=== PATIENT | female | born 1980 | race African-American/Black ===

== ENCOUNTER 2019-04-01 20:24 | Emergency (ER) | payer OTHER ==
[~2019-04-01] VITALS: Ht 160 cm; Wt 56.7 kg
--- OUTSIDE RECORDS SUMMARY | 2019-04-01 20:27 | XMS REPORT | Summary of Care ---
Author Author KAI HAMILTON M.D. Unknown Address [facility] Phone Unavailable Care Team Providers Care Handbag Designer Name Role Phone KAI HAMILTON M.D. 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 Medications Name Dates Details No Reported Medications Active Allergies and Adverse Reactions Name Dates Details No Known Drug Allergies (Allergy) Status: Active Procedures Procedure Dates Details CT Sinus w/o contrast with sag recons 13889 Date: 17-Aug-2017 History of tonsillectomy Completed Immunization Name Dates Details Immunizations not documented Family History Name Dates Details Family history of Allergy (995.3, T78.40XA) Comments: Family History Status: Active Family history of asthma (V17.5, Z82.5) Comments: Family History Status: Active Family history of malignant neoplasm (V16.9, Z80.9) Comments: Family History Status: Active Social History Name Dates Details - Status: Name Dates Details Never smoker Vital Signs Date Test Result Details [id number]-[id number]:01 Height 63 in Status: Weight 128 lb Status: Body Mass Index Calculated 22.67 kg/m2 Status: Body Surface Area Calculated 1.6 m2 Status: 2-Doz-[id number]:12 BP Systolic 107 mm[Hg] Status: BP Diastolic 70 mm[Hg] Status: Height 63 in Status: Weight 128.5 lb Status: Body Mass Index Calculated 22.76 kg/m2 Status: Body Surface Area Calculated 1.6 m2 Status: Heart Rate 81 /min Status: Results Date Description Value Details [id number] Tobacco Use Screening Completed DONE 08-Gmj-24452:30 CT Sinus wo contrast [address] SEE NOTES Comments: Clinical Indication: - allergic rhinitis &chronic headachesComparison: NoneTechnique: CT of the sinuses is performed without contrast on a multi-detectorCT. Coronal and sagittal reconstructions were obtained.CT Radiation Dose DLP 528 mGy-cmFINDINGS:PARANASAL SINUSES: There is a 2.4 cm mucous retention cyst in the base of theright maxillary sinus 1.7 cm in the base of the left. There is minimal mu cosalthickening along the medial wall and the bilateral ostium. The remainder of theparanasal sinuses show no significant because inflammatory changes with onlyminimal mucosal thickening in the right lateral sphenoid sinus and left frontalethmoid recess.SOFT TISSUES: There is no soft tissue swelling seen. There is no significantlymphadenopathy noted. There are no fluid collections.NASAL CAVITY: The nasal septum is slightly deviated and there is mucosalprominence of the left middle turbinate. There is no nasal polyposis.ORBITS: The globes and extraocular muscles appear unremarkable. The orbitalapex regions appear unremarkable. The orbital roof, floor, superior, inferior,medial and lateral macias are intact.FACIAL BONES: There are no facial bone fractures noted. The pterygoid platesare intact. The zygomatic arches are intact. The cribriform plate and cristagalli regions are unremarkable. The maxilla is intact. The mandible is intactwith intact mandibular condyles and coronoid processes.IMPRES CARLENE:Mucous retention cyst in the base of the maxillary sinuses are present alongwith minor mucosal thickening in the right lateral sphenoid sinus and leftfrontal ethmoid recess.There is no nasal polyposis. There is slight nasal septal deviation.SL: ASHLEY--Read by: Aditya Melgozaictated Date/time: 08/27/17 10:06Electronically Signed by: Aditya Melgoza MD 08/27/1809:08FINAL REPORT Plan of Care Name Dates Details Planned Observations Planned Goals not documented Interventions Provided Plan* 1. Will need to see Neurology for the headaches. Will begin sinus rinse daily. Will need to begin dietary modifications and continue on the PPI. Fu as needed. Instructions Name Dates Details Instructions not documented Encounters Appointment; KAI HAMILTON M.D. Encounter Diagnosis: Problem not documented On: 17-Aug-2017 10:45 Appointment; KAI HAMILTON M.D. Encounter Diagnosis: Problem not documented On: 31-Aug-2017 10:00
--- OUTSIDE RECORDS SUMMARY | 2019-04-01 20:27 | XMS REPORT ---
Author Author [facility] Address Unknown Phone Unavailable Care Team Providers Care Private Equity Associate Name Role Phone Unavailable Unavailable Problems This patient has no known problems. Allergies, Adverse Reactions, Alerts This patient has no known allergies or adverse reactions. Medications This patient has no known medications.
--- OUTSIDE RECORDS SUMMARY | 2019-04-01 20:27 | XMS REPORT | Encounter Summary ---
Author Organization Unknown Address [address] [place] [address] Phone [phone] Reason for Visit Medical Complaint Instructions 1. Exposure to Influenzavirus oseltamivir 75 mg capsule rapid flu (A+B) 2. Influenza-like symptoms 3. Pain in throat sore throat: care instructions Lidocaine Viscous 2 % mucosal solution rapid strep group A, throat 4. Headache headache: care instructions 5. Generalized aches and pains Discussion Note Pt is in NAD; Verbalizes understanding of all instructions with no questions at this time. Plan of Care Patient Instructions Stope theraflu. Take oseltamivir as directed to help with flu-like symptoms. Gargle and spit viscous lidocaine as needed for sore throat as directed. Alternate with Ibuprofen and acetaminophen every 4hrs as needed for pain/fever/headache/body aches. Proper hydration and rest. Return to work/school if free of fever for 24-hrs. Do not share any utensils/cups, no kissing, recommend hand washing after coughing/sneezing/blowing nose and cover face when you do so. Take medications as prescribed. Return to clinic or follow up with your PCP within 2-3 days if symptoms worsen as discussed. In case of an em ergency call 911 or go to nearest ER. Reminders Provider Appointments None recorded. Lab Rapid Strep Group a, Throat 06/03/2017 [facility] Rapid Flu (A+B) 06/03/2017 [facility] Referral None recorded. Procedures None recorded. Surgeries None recorded. Imaging None recorded. Medications Name Start Date EpiPen 2-[place] 0.3 mg/0.3 mL injection, auto-injector Fluarix Quad [id number] (PF) 60 mcg (15 mcg x 4)/0.5 mL IM syringe TO BE ADMINISTERED BY PHARMACIST FOR IMMUNIZATION Lidocaine Viscous 2 % mucosal solution Take 10 mL every 3 hours by oral route as needed. oseltamivir 75 mg capsule Take 1 capsule every day by oral route as directed for 10 days. Medications Administered None recorded. Vitals Height Weight BMI Blood Pressure 5 ft 4 in 132 lbs 22.7 kg/m2 104/66 mm[Hg] Lab Results Date Name Specimen Result Interpretation Description Value Range Status Address Rapid Flu (A+B) Influenza a negative [facility]: [facility] Influenza B negative [facility]: [facility] Rapid Strep Group a, Throat Result negative [facility]: [facility] Swab Location Left and Right tonsillar pillars [facility]: [facility] Allergies Code Code System Name Reaction Severity Status Onset NKDA Problems None recorded. Procedures Date Name Performed by Tonsillectomy Information not available Vaccine List Vaccine Type influenza, unspecified formulation 06/09/2017 Social History Smoking Status Never Smoker Past Encounters 06/03/2017 Exposure to Influenzavirus; Influenza-like Symptoms; Pain in Throat; Headache; Generalized Aches and Pains Jeimy Jason, CASINO CASHIER-C: [address] [place] [address], Ph. History of Present Illness Wxzrqls-Eawxg-Hwr Reported By: Patient HPI: Quality: symptoms worse during the day. Duration: 1 days. Severity: subjective temperature. Context: no tick/insect bites, no recent travel, no new medications, ill contacts. Associated Symptoms: no muscle aches, no rash, no lethargy, fever/chills, headache, cough, nasal passage blockage (stuffiness); body aches and sore throat. Modifying Factors nothing gives relief Review of Systems:ROS as noted in the HPI Review of Systems Basic Reported By: Patient Physical Exam Adult Basic, Adult Female Complete, Adult Male Complete Reported By: Patient Constitutional: General Appearance: healthy-appearing, well-nourished, well-developed. Level of Distress: NAD. Ambulation: ambulating normally Psychiatric: Mental Status: active and alert. Orientation: to time, to place, to person Eyes: Lids and Conjunctivae: non-injected, no discharge, no pallor. Pupils: PERRLA. Corneas: grossly intact. EOM: EOMI. Lens: clear. Vision: peripheral vision grossly intact Gqr-Bxap-Qxpxt-Throat: Ears: no lesions on external ear, no outer ear tenderness, EACs clear, TMs clear. Hearing: no hearing loss. Nose: no lesions on external nose, nares patent, no septal deviation, nasal passages clear, no sinus tenderness, nasal discharge--rhinorrhea, post nasal drip. Lips, Teeth, and Gums: no mouth or lip ulcers, no bleeding gums, normal dentition. Oropharynx: moist mucous membranes, no erythema, no exudates, tonsils absent Neck: Neck: supple. Lymph Nodes: no cervical LAD Lungs: Respiratory effort: no dyspnea, no tachypnea, no use of accessory muscles, no intercostal retractions. Auscultation: breath sounds normal, good air movement Cardiovascular: Heart Auscultation: no murmurs, tachycardia Neurologic: Gait and Station: normal gait, normal station. Cranial Nerves: grossly intact. Reflexes: DTRs 2+ bilaterally throughout. Coordination and Cerebellum: no tremor
--- OUTSIDE RECORDS SUMMARY | 2019-04-01 20:27 | XMS REPORT | Encounter Summary ---
Author Organization Unknown Address [address] [place] [address] Phone [phone] Reason for Visit Medical Complaint Instructions 1. Dysfunction of eustachian tube eustachian tube problems: care instructions Discussion Note: None recorded. Plan of Care Patient Instructions The eustachian (say "joy-FKMR-qggr-un") tubes run between the inside of the ears and the throat. They keep air pressure stable in the ears. If your eustachian tubes become blocked, the air pressure in your ears changes. The fluids from a cold can clog eustachian tubes, causing pain in the ears. A quick change in air pressure can cause eustachian tubes to close up. This might happen when an airplane changes altitude or when a secretary of state goes up or down underwater. Eustachian tube problems often clear up on their own or after antibiotic treatment. If your tubes continue to be blocked, you may need surgery. Follow-up care is a carl part of your treatment and safety. Be sure to make and go to all appointments, and call your doctor if you are having problems. It's also a good idea to know your test results and keep a list of the medicines you take. How can you care for yourself at home? To ease ear pain, apply a warm washcloth or a heating pad set on low. There may be some drainage from the ear when the heat melts earwax. Put a cloth between the heat source and your skin. Do not use a heating pad with children. If your doctor prescribed antibiotics, take them as directed. Do not stop taking them just because you feel better. You need to take the full course of antibiotics. Your doctor may recommend zmnk-xin-qpjdtcr medicine. Be safe with medicines. Oral or nasal decongestants may relieve ear pain. Avoid decongestants that are combined with antihistamines, which tend to cause more blockage. But if allergies seem to be the problem, your doctor may recommend a combination. Be careful with cough and cold medicines. Don't give them to children younger than 6, because they don't work for children that age and can even be harmful. For children 6 and older, always follow all the instructions carefully. Make sure you know how much medicine to give and how long to use it. And use the dosing device if one is included. When should you call for help? Call your doctor now or seek immediate medical care if: You develop sudden, complete hearing loss. You have severe pain or feel dizzy. You have new or increasing pus or blood draining from your ear. You have redness, swelling, or pain around or behind the ear. Watch closely for changes in your health, and be sure to contact your doctor if: You do not get better after 2 weeks. You have any new symptoms, such as itching or a feeling of fullness in the ear. Reminders Provider Appointments None recorded. Lab None recorded. Referral None recorded. Procedures None recorded. Surgeries None recorded. Imaging None recorded. Medications Name Start Date azelastine 137 mcg (0.1 %) nasal spray aerosol fluticasone 50 mcg/actuation nasal spray,suspension methylprednisolone 4 mg tablets in a dose pack montelukast 10 mg tablet pantoprazole 40 mg tablet,delayed release ranitidine 150 mg tablet TAKE 1 TABLET BY MOUTH TWICE A DAY sucralfate 1 gram tablet Medications Administered None recorded. Vitals Height Weight BMI Blood Pressure 5 ft 4 in 125 lbs 21.5 kg/m2 100/60 mm[Hg] Lab Results None recorded. Allergies Code Code System Name Reaction Severity Status Onset NKDA Problems Name Status Onset Date Source Pain in Throat Active 10/31/2017 Gastroesophageal Reflux Disease Active Procedures Date Name Performed by Tonsillectomy Information not available Vaccine List Vaccine Type influenza, unspecified formulation 06/09/2017 Social History Smoking Status Never Smoker Past Encounters 07/21/2018 Dysfunction of Eustachian Tube YENNI Glaser: [address] [place] [address], Ph. History of Present Illness Ear Complaint Reported By: Patient HPI: Location: bilateral. Quality: ears feel full/plugged, muffled. Severity: continuous. Duration: symptoms lasting over 2 weeks. Onset/Timing: still present. Context: no sick contacts, no recent swimming/water in ear, no exposure to second hand smoke, no head trauma, no recent air travel, history of ear aches/ear infections, grinding teeth. Modifying factors: does not hurt to lie on, or pull on ear, does not hurt to chew. Associated Symptoms: no discharge from the ears, no hearing loss, no nose/sinus problems, no popping noise in the ears, no ringing in the ears, no fever, no chills, no earache, no dizziness, no vertigo, no headache, no muscle aches Review of Systems:ROS as noted in the HPI Review of Systems Basic Reported By: Patient Physical Exam Adult Basic, Adult Female Complete Reported By: Patient Constitutional: General Appearance: healthy-appearing, well-nourished, well-developed. Level of Distress: NAD. Ambulation: ambulating normally Psychiatric: Mental Status: active and alert. Orientation: to time, to place, to person Wfm-Zhho-Krqaq-Throat: Ears: no lesions on external ear, no outer ear tenderness, EACs clear, TMs clear, middle ear fluid. Hearing: hearing decreased. Nose: no lesions on external nose, nares patent, nasal passages clear, no sinus tenderness, no nasal discharge, deviated septum. Lips, Teeth, and Gums: no mouth or lip ulcers, no bleeding gums, normal dentition. Oropharynx: moist mucous membranes, no erythema, no exudates, tonsils not enlarged Lungs: Respiratory effort: no dyspnea, no tachypnea, no use of accessory muscles, no intercostal retractions. Auscultation: breath sounds normal Cardiovascular: Heart Auscultation: RRR, no murmurs
--- OUTSIDE RECORDS SUMMARY | 2019-04-01 20:27 | XMS REPORT | Encounter Summary ---
Author Organization Unknown Address [address] [place] [address] Phone [phone] Reason for Visit Medical Complaint Instructions 1. Pain in throat rapid strep group A, throat sore throat: care instructions 2. Gastroesophageal reflux disease gastroesophageal reflux disease (GERD): care instructions Discussion Note Pt is in NAD; Verbalizes understanding of all instructions with no questions at this time. Plan of Care Patient Instructions Gargle and spit viscous lidocaine as needed for sore throat as directed. take tylenol as per package insert for pain. Continue pantoprazole and carafate for your GERD and follow with GI on 11-29-17. Proper hydration and rest. Do not share any utensils/cups, no kissing. Frequent handwashing recommended. Take medications as prescribed. Follow up with your PCP within 2-3 days if symptoms worsen as discussed. Reminders Provider Appointments None recorded. Lab Rapid Strep Group a, Throat 10/31/2017 [facility] Referral None recorded. Procedures None recorded. Surgeries None recorded. Imaging None recorded. Medications Name Start Date pantoprazole 40 mg tablet,delayed release sucralfate 1 gram tablet Medications Administered None recorded. Vitals Height Weight BMI Blood Pressure 5 ft 4 in 123 lbs 21.1 kg/m2 92/72 mm[Hg] Lab Results Date Name Specimen Result Interpretation Description Value Range Status Address Rapid Strep Group a, Throat Result negative [facility]: [address] [place] [address] Swab Location Left and Right tonsillar pillars [facility]: [address] [place] [address] Allergies Code Code System Name Reaction Severity Status Onset NKDA Problems Name Status Onset Date Source Pain in Throat Active 10/31/2017 Gastroesophageal Reflux Disease Active Procedures Date Name Performed by Tonsillectomy Information not available Vaccine List Vaccine Type influenza, unspecified formulation 06/09/2017 Social History Smoking Status Never Smoker Past Encounters 10/31/2017 Pain in Throat; Gastroesophageal Reflux Disease Jeimy Jason, CARLOS-C: [address] [place] [address], Ph. History of Present Illness Throat-Oral Complaint Reported By: Patient HPI: Location: throat. Quality: sore throat. Severity: moderate, pain level 6/10. Duration: 2 days. Onset/Timing: sudden. Context: no sick contacts, no foreign travel, non-smoker; Pt has h/o GERD and will f/u with GI on 11-29-17. Modifying factors: ; Viscous Lidocaine prn. Associated Symptoms: no fever, no headache, no body aches, no sputum production, no shortness of breath, no wheezing, no change in number of pillows needed to sleep at night, no sweats, no significant weight gain, no significant weight loss, no morning cough, no vomiting, no diarrhea, no rash, no nausea, sore throat Note:
Review of Systems:ROS as noted in the HPI Review of Systems Basic Reported By: Patient Physical Exam Adult Basic, Adult Female Complete Reported By: Patient Constitutional: General Appearance: healthy-appearing, well-nourished, well-developed. Level of Distress: NAD. Ambulation: ambulating normally Psychiatric: Mental Status: active and alert. Orientation: to time, to place, to person Vxs-Vzje-Uhibn-Throat: Ears: no lesions on external ear, no outer ear tenderness, EACs clear, TMs clear. Hearing: no hearing loss. Nose: no lesions on external nose, nares patent, no septal deviation, nasal passages clear, no sinus tenderness, post nasal drip. Lips, Teeth, and Gums: no mouth or lip ulcers, no bleeding gums, normal dentition. Oropharynx: moist mucous membranes, no erythema, no exudates, tonsils not enlarged Neck: Lymph Nodes: no cervical LAD Lungs: Respiratory effort: no dyspnea, no tachypnea, no use of accessory muscles, no intercostal retractions. Auscultation: breath sounds normal Cardiovascular: Heart Auscultation: RRR, no murmurs Neurologic: Gait and Station: normal gait, normal station Abdomen: Bowel Sounds: normal. Inspection and Palpation: soft, non-distended, no tenderness, no guarding, no rebound tenderness, no masses, no CVA tenderness. Liver: non-tender, no hepatomegaly. Spleen: non-tender, no splenomegaly. Hernia: none palpable
--- OUTSIDE RECORDS SUMMARY | 2019-04-01 20:27 | XMS REPORT | Summary of Care ---
Author Author [facility] - Health Organization [facility] - Health Address Unknown Phone Unavailable Care Team Providers Care Art Preparator Name Role Phone Jeimy Nunez MD PCP Jesús Dickinson MD Unavailable Reason for Visit * Reason Comments Follow-up CT scan results. Complains of nasal congestion and thick mucus with coughing Encounter Details Care Team Description Date Type Department Mervat Wright MD [address] [place], [place] [address] Chronic maxillary sinusitis (Primary Dx); Nasal polyposis; Chronic seasonal allergic rhinitis due to pollen; ETD (Eustachian tube dysfunction), bilateral; Hypertrophy of both inferior nasal turbinates; Nasal obstruction; Nasal septal deviation; Hyposmia; LPRD (laryngopharyngeal reflux disease); Peanut allergy; Chronic ethmoidal sinusitis; Chronic frontal sinusitis 03/08/2019 [facility] [address] [place] [phone] Allergies Comments Active Allergy Reactions Severity Noted Date Whole milk vitamin D Milk Other - See Medium 02/01/2019 comments Peanut Butter Flavor Anaphylaxis 04/18/2014 documented as of this encounter (statuses as of 03/08/2019) Medications End Date Status Medication Sig Dispensed Refills Start Date Active CETIRIZINE HCL (ZYRTEC Take by 0 ORAL) mouth. Active MULTIVITAMIN ORAL Take by 0 mouth. Active EPINEPHrine (EPIPEN 0.3 mg IM PRN 2 Each 0 2-BLAISE) 0.3 mg/0.3 mL anaphylaxis 9 injectionIndications: to Peanut allergy foods/shorts Active pantoprazole 40 mg EC Take 1 tablet 60 tablet 1 tabletIndications: by mouth 2 9 Odynophagia, Heartburn (two) times daily. Active dicyclomine 10 mg Take 1 30 capsule 2 capsuleIndications: capsule by 9 Abdominal pain, mouth 4 generalized (four) times daily as needed for Abdominal pain. Active fluticasone propionate 50 Use 1 [place] 16 g 11 mcg/actuation nasal in each 9 sprayIndications: Chronic nostril 2 seasonal allergic (two) times rhinitis due to pollen, daily. Hypertrophy of both inferior nasal turbinates Active montelukast 10 mg Take 1 tablet 30 tablet 11 tabletIndications: by mouth 9 Chronic seasonal allergic daily. rhinitis due to pollen Active ranitidine 150 mg Take 1 tablet 60 tablet 11 tabletIndications: LPRD by mouth 2 9 (laryngopharyngeal reflux (two) times disease) daily. Active azelastine 137 mcg (0.1 Use 1 [place] 30 mL 11 %) nasal in each 9 sprayIndications: Chronic nostril 2 seasonal allergic (two) times rhinitis due to pollen, daily. Use in Hypertrophy of both each nostril inferior nasal turbinates as directed Active methylPREDNISolone Take by 1 Each 0 (MEDROL, BLAISE,) 4 mg mouth 9 tabletsIndications: SEE-INSTRUCTI Chronic maxillary ONS. follow sinusitis, Chronic package ethmoidal sinusitis, directions Chronic frontal sinusitis documented as of this encounter (statuses as of 03/08/2019) Active Problems Problem Noted Date Odynophagia 12/15/2018 Overview: Added automatically from request for surgery [id number] Heartburn 12/15/2018 Overview: Added automatically from request for surgery [id number] Post-nasal drip 12/15/2018 Overview: Added automatically from request for surgery [id number] Abdominal pain, generalized 12/15/2018 Overview: Added automatically from request for surgery [id number] Dysphagia, pharyngoesophageal phase 12/15/2018 Overview: Added automatically from request for surgery [id number] Other iron deficiency anemia 06/21/2017 Polyarthritis 04/26/2012 Overview: mild,symmetric documented as of this encounter (statuses as of 03/08/2019) Resolved Problems Problem Noted Date Resolved Date Group B Streptococcus carrier, antepartum 04/10/2015 11/05/2015 Antepartum anemia in second trimester 02/22/2015 11/05/2015 documented as of this encounter (statuses as of 03/08/2019) Immunizations Name Administration Dates Next Due Allergen Extract vial b 10/05/2018, 09/28/2018, 09/28/2018 Influenza Virus Vaccine 04/26/2012 Influenza Virus Vaccine 10/10/2014 Quad IM 3+ YRS allergen extract vial a 10/05/2018, 09/28/2018, 09/28/2018 documented as of this encounter Social History Date Tobacco Use Types Packs/Day Years Used Never Smoker Smokeless Tobacco: Never Used Drinks/Week oz/Week Comments Alcohol Use No Sex Assigned at Date Recorded Not on file Industry Job Start Date Occupation Not on file Not on file Not on file Travel End Travel History Travel Start No recent travel history available. documented as of this encounter Last Filed Vital Signs Reading Time Taken Comments Vital Sign - - Blood Pressure - - Pulse 36.7 C (98.1 F) 03/08/2019 9:32 AM CDT Temperature - - Respiratory Rate - - Oxygen Saturation - - Inhaled Oxygen Concentration 57.2 kg (126 lb 0.6 oz) 03/08/2019 9:32 AM CDT Weight 160 cm (5' 3") 03/08/2019 9:32 AM CDT Height 22.33 03/08/2019 9:32 AM CDT Body Mass Index documented in this encounter Patient Instructions * Patient Instructions* Jewell Morrissey - 03/08/2019 9:15 AM CDT Your surgery is scheduled on: 05/04/2019 (you will receive a call on 05/03/20 19 between 1pm-4:30pm with time of surgery) [facility] [address] [place] [address] Day Surgery If you have any questions, or if you need to cancel/reschedule the surgery or post-op appointments, please contact us at [phone]. Thank you. documented in this encounter Progress Notes * Jeyson Gonzales MD - 03/08/2019 9:15 AM CDT 03/08/2019 09:53 Arelis Rosenbamu Chief Complaint: Follow up CT sinus, congestion ENT Follow-up This is a 38 year old with hx of food allergies, LPRD, severe seasonal and peren nial AR/ith contributing to CRS with polyps, hyposmia, ETD and nasal obstruction . Allergy test very positive (results documented below) was on SCIT but stopped due to it causing her "bad reflux" Today she reports no improvement in the symptoms since last visit. She is coughi ng up green mucus. She reports ear fullness bilaterally today. Unable to pop her ears. She is taking pseudoephedrine 60 mg daily. She reports some relief in the ear pressure. She notes no ear pain. She reports changes in her hearing since t he pressure has worsened and it has become muffled. She reports rhinorrhea, perez estion, She reports sinus pressure along inferior orbit/maxillary sinus bilatera lly. She reports decreased sense of smell. She reports she has not been taking h er zyrtec daily but has been taking all other medicines. She reports chronic pro ductive cough for last 3 weeks Denies wheezing/asthma sx. Continues to have hea rt burn. No recent fever. When congestion gets worse, she takes sudafed prn. True reilly epipen for food allergies, no recent severe reaction. RAST showed only mild m ilk allergy. She still avoids peanuts, had soybean and wheat allergy as child wh ich she has likely outgrown. Also had hx urticaria as child which has improved. She is here today to review her sinus CT which was obtained on 02/28/2019. Current Meds: Current Outpatient Medications on File Prior to Visit Medication Sig Dispense Refill azelastine 137 mcg (0.1 %) nasal spray Use 1 [place] in each nostril 2 (two) t imes daily. Use in each nostril as directed 30 mL 11 fluticasone propionate 50 mcg/actuation nasal spray Use 1 [place] in each nost ril 2 (two) times daily. 16 g 11 montelukast 10 mg tablet Take 1 tablet by mouth daily. 30 tablet 11 ranitidine 150 mg tablet Take 1 tablet by mouth 2 (two) times daily. 60 tabl et 11 dicyclomine 10 mg capsule Take 1 capsule by mouth 4 (four) times daily as ne eded for Abdominal pain. 30 capsule 2 pantoprazole 40 mg EC tablet Take 1 tablet by mouth 2 (two) times daily. 60 tablet 1 EPINEPHrine (EPIPEN 2-BLAISE) 0.3 mg/0.3 mL injection 0.3 mg IM PRN anaphylaxis to foods/shorts 2 Each 0 MULTIVITAMIN ORAL Take by mouth. CETIRIZINE HCL (ZYRTEC ORAL) Take by mouth. No current facility-administered medications on file prior to visit. Allergies Allergen Reactions Milk Other - See comments Whole milk vitamin D Peanut Butter Flavor Anaphylaxis Past Medical History: Diagnosis Date Esophageal reflux Seasonal allergies STD (sexually transmitted disease) chlamydia Past Surgical History: Procedure Laterality Date TONSILLECTOMY 02/1987 Family History Problem Relation Age of Onset Hypertension Mother Diabetes Mother preDM Cancer Father Prostate Asthma Sister severe Diabetes Sister preDM Asthma Daughter mild- age 7 now Breast Cancer NoFHx Colon Cancer NoFHx Ovarian Cancer NoFHx Uterine Cancer NoFHx Social: Social History Tobacco Use Smoking status: Never Smoker Smokeless tobacco: Never Used Substance Use Topics Alcohol use: No Drug use: No ROS Constitutional: no fever/ malaise/ weight loss Eyes: no change in vision/ redness of the eyes Ears, Nose, Mouth, Throat: Congestion, rhinorrhea, hyposmia, ear pressure, other mead negative Cardiovascular: no chest pain/ palpitations Respiratory: no dyspnea/ new cough/ hemoptysis Gastrointestinal: no nausea/ vomiting/ diarrhea/ constipation Genitourinary: no hematuria/ dysuria Musculoskeletal: no aches/ pains Integumentary: no rashes/ pruritis Neurological: no headache/ weakness/ numbness/ tingling Psychiatric: no depression/ anxiety/ hallucinations Clinical Examination: The patient looks stated age. The patient is awake, alert, oriented & in no apparent distress. Voice is good with no stridor or hoarseness. Breathing is normal. Vitals: Vitals: 03/08/19 0932 Temp: 36.7 C (98.1 F) TempSrc: Tympanic Weight: 126 lb 0.6 oz (57.2 kg) Height: 5' 3" (1.6 m) Neuro: Face symmetrical, no obvious masses or cranial nerve palsy Salivary glands symmetrical, no masses/abnormality on palpation Skin: no obvious facial lesions Eyes: EOMI Ears: Right ear canal normal, TM shows retraction and severe ETD, no fluid Left ear canal normal, TM shows retraction and severe ETD, no fluid Nose: Septum shows mild deviation, bilateral severe hypertrophy inferior turbin ates, no mass/lesions, mucosa shows congestion Oral cavity: no trismus, dentition normal, no mass/lesions, severe posterior ph aryngeal cobblestoning, soft palate/uvula normal Neck: no mass/lymphadenopathy, trachea is midline; no palpable thyroid nodules Lungs: Clear, no wheezing/stridor, no retractions CVS: Good pulses Imaging: CT Sinus 02/28/2019 CT sinus landmark fusion personally reviewed by Dr. Wright and shows: Deviated nasal septum towards right with bilateral inferior turbinate hypertroph y Bilateral narrow OMCs Bilateral maxillary sinus congestion with mucus retention cysts Bilateral anterior ethmoid mucosal congestion and frontal recess congestion Bilateral posterior ethmoid Mucosal congestion Bilateral sphenoid mucosal congestion with Onodi Cells bilaterally Onodi configuration Present in Sphenoid Bilatrally Skull base symmetrical Keros Classification II AEAs covered and bilateral lamina intact Nasopharynx shows no lesions, adenoid tissue Bilateral middle ear/mastoid aerated Medical Review Thorough chart review completed Imaging Previous imaging reviewed Labs None Assessment: Severe seasonal and perennial AR/ith contributing to CRS with polyp s, ETD and nasal obstruction. Also has hx food allergies--peanut avoidance, limi ts milk intake. Allergy test very positive. Discussed CT sinus. Patient aware of the symptoms and would like to proceed with sinus surgery. Discussed need for e ndoscopic sinus surgery, septoplasty and ITR. Patient will also get BMT for retr actions. Patient aware of risks and benefits and wishes to proceed. We will also give her a medrol dose pack. ICD-10-CM ICD-9-CM 1. Nasal polyposis J33.9 471.9 2. Chronic maxillary sinusitis J32.0 473.0 3. Chronic seasonal allergic rhinitis due to pollen J30.1 477.0 4. ETD (Eustachian tube dysfunction), bilateral H69.83 381.81 5. Hypertrophy of both inferior nasal turbinates J34.3 478.0 6. Nasal obstruction J34.89 478.19 7. Nasal septal deviation J34.2 470 8. Hyposmia R43.8 781.1 9. LPRD (laryngopharyngeal reflux disease) K21.9 478.79 10. Food allergy Z91.018 V15.05 11. Peanut allergy Z91.010 V15.01 Plan: - Medrol Dosepak - Continue Flonase and astelin 1 spray each bid for AR/ith, CRS with polyps - Continue zyrtec daily for AR, continue singulair daily for AR - Continue peanut avoidance and epipen for severe reaction (has not needed) - Continue ranitidine and lifestyle changes for reflux - Recommend sinus surgery involving septoplasty/turbintate reduction/FESS includ ing BL maxillary antrostomy, BL anterior and posterior ethmoidectomy, bilaterall y sphenoidotomy or balloon dilation. - Risks and benefits discussed with patient regarding sinus surgery. Patient is aware and wishes to proceed - Consent obtained today. RTC 6 days after sinus surgery Jeyson Gonzales MD Otolaryngology-Head & Neck Surgery PGY-1 documented in this encounter Plan of Treatment Care Team Description Date Type Specialty Mervat Wright MD [address] [place] [address] [phone] 05/10/2019 Office Visit Otolaryngology Health Maintenance Due Date Last Done Comments DTaP,Tdap,and Td Vaccines 1999 (1 - Tdap) INFLUENZA VACCINE 04/09/2019 10/10/2014, 04/26/2012 PAP SMEAR 11/21/2019 11/20/2016, 10/10/2014 PNEUMOCOCCAL 0-64 YEARS Aged Out No longer eligible based COMBINED SERIES on patient's age to complete this topic documented as of this encounter Results Not on filedocumented in this encounter Visit Diagnoses Diagnosis Chronic maxillary sinusitis - Primary Nasal polyposis Unspecified nasal polyp Chronic seasonal allergic rhinitis due to pollen ETD (Eustachian tube dysfunction), bilateral Hypertrophy of both inferior nasal turbinates Hypertrophy of nasal turbinates Nasal obstruction Other diseases of nasal cavity and sinuses Nasal septal deviation Deviated nasal septum Hyposmia Disturbances of sensation of smell and taste LPRD (laryngopharyngeal reflux disease) Other diseases of larynx Peanut allergy Other adverse food reactions, not elsewhere classified Chronic ethmoidal sinusitis Chronic frontal sinusitis documented in this encounter Insurance Type Payer Benefit Subscriber ID Effective Phone Address Plan / Dates Group HMO/PPO/POS [facility] [id number] 2015-P HEALTHCARE resent PPO documented as of this encounter
--- OUTSIDE RECORDS SUMMARY | 2019-04-01 20:27 | XMS REPORT | Summary of Care ---
Author Author [facility] Organization [facility] Address Unknown Phone Unavailable Encounter HQ [email or web address](FIN) [id number] Date(s): 08/27/17 - 08/27/17 [facility] [address] [place] [address]- Encounter Diagnosis Allergic rhinitis, unspecified (Final) - 08/30/17 Headache (Final) - Cyst and mucocele of nose and nasal sinus (Final) - Deviated nasal septum (Final) - Discharge Disposition: Home or Self Care Attending Physician: Joshua Pike MD Referring Physician: Joshua Pike MD Vital Signs No data available for this section Problem List No data available for this section Allergies, Adverse Reactions, Alerts No data available for this section Medications No data available for this section Results No data available for this section Immunizations No data available for this section Procedures No data available for this section Social History No data available for this section Assessment and Plan No data available for this section
--- OUTSIDE RECORDS SUMMARY | 2019-04-01 20:27 | XMS REPORT | Summary of Care ---
Author Author [facility] - Health Organization [facility] - Health Address Unknown Phone Unavailable Care Team Providers Care Umbrella Tipper Machine Name Role Phone Jeimy Nunez MD PCP Jesús Dickinson MD Unavailable Reason for Visit * Reason Comments Follow-up CT scan results. Complains of nasal congestion and thick mucus with coughing Encounter Details Care Team Description Date Type Department Mervat Wright MD [address] [place], [place] [address] Chronic maxillary sinusitis (Primary Dx); Nasal polyposis; Chronic seasonal allergic rhinitis due to pollen; ETD (Eustachian tube dysfunction), bilateral; Hypertrophy of both inferior nasal turbinates; Nasal obstruction; Nasal septal deviation; Hyposmia; LPRD (laryngopharyngeal reflux disease); Peanut allergy; Chronic ethmoidal sinusitis; Chronic frontal sinusitis 03/08/2019 [facility] [address] [place] [phone] Allergies Comments Active Allergy Reactions Severity Noted [...] pain. Active fluticasone propionate 50 Use 1 [place] 16 g 11 mcg/actuation nasal in each [...] Active azelastine 137 mcg (0.1 Use 1 [place] 30 mL 11 %) nasal in each [...] Overview: Added automatically from request for surgery [id number] Heartburn 12/15/2018 Overview: Added automatically from request for surgery [id number] Post-nasal drip 12/15/2018 Overview: Added automatically from request for surgery [id number] Abdominal pain, generalized 12/15/2018 Overview: Added automatically from request for surgery [id number] Dysphagia, pharyngoesophageal phase 12/15/2018 Overview: Added automatically from request for surgery [id number] Other iron deficiency anemia 06/21/2017 Polyarthritis 04/26/2012 [...] between 1pm-4:30pm with time of surgery) [facility] [address] [place] [id number] Day Surgery If you have any questions, or if you need to cancel/reschedule the surgery or post-op appointments, please contact us at [phone]. Thank you. documented in this encounter Progress Notes * Jeyson Gonzales MD - 03/08/2019 9:15 AM CDT 03/08/2019 09:53 Arelis Rosenbaum Chief Complaint: Follow up CT sinus, congestion [...] mcg (0.1 %) nasal spray Use 1 [place] in each nostril 2 (two) t imes daily. Use in each nostril as directed 30 mL 11 fluticasone propionate 50 mcg/actuation nasal spray Use 1 [place] in each nost ril 2 (two) times [...] Specialty Mervat Wright MD [address] [place] [address] [phone] 05/10/2019 Office Visit Otolaryngology Health Maintenance Due [...] Phone Address Plan / Dates Group HMO/PPO/POS [facility] [id number] 2015-P HEALTHCARE resent PPO documented as of this encounter
--- OUTSIDE RECORDS SUMMARY | 2019-04-01 20:27 | XMS REPORT | Continuity of Care Document ---
Author Author [facility] Address Unknown Phone Unavailable Care Team Providers Care Healthcare Customer Service Name Role Phone [employer] Unavailable Unavailable Problems Problem Status Onset Date Classification Date Reported Comments Source Dysfunction of eustachian tube 07/21/2018 Diagnosis 07/21/2018 [facility] Gastroesophageal reflux disease 10/31/2017 Diagnosis 10/31/2017 [facility] Pain in throat 10/31/2017 Diagnosis 10/31/2017 [facility] Pain in Throat 10/31/2017 Problem 07/21/2018 [facility] Allergic rhinitis, unspecified 08/31/2017 12/03/2017 [facility] N/A Active 08/17/2017 [facility] Exposure to Influenzavirus 06/03/2017 Diagnosis 06/03/2017 [facility] Influenza-like symptoms 06/03/2017 Diagnosis 06/03/2017 [facility] Headache 06/03/2017 Diagnosis 06/03/2017 [facility] Generalized aches and pains 06/03/2017 Diagnosis 06/03/2017 [facility] Headache 12/03/2017 [facility] Cyst and mucocele of nose and nasal sinus 12/03/2017 [facility] Deviated nasal septum 12/03/2017 [facility] Gastroesophageal Reflux Disease Problem 07/21/2018 [facility] Medications Medication Details Route Status Patient Instructions Ordering Provider Order Date Source pantoprazole 40 MG Delayed Release Oral Tablet pantoprazole 40 mg tablet,delayed release Active [facility] Sucralfate 1000 MG Oral Tablet sucralfate 1 gram tablet Active [facility] [id number] 0.3 ML Epinephrine 1 MG/ML Auto-Injector [Epipen] EpiPen 2-[place] 0.3 mg/0.3 mL injection, auto-injector Active [facility] Fluarix Quad (PF) 60 mcg (15 mcg x 4)/0.5 mL IM syringe Fluarix Quad (PF) 60 mcg (15 mcg x 4)/0.5 mL IM syringe TO BE ADMINISTERED BY PHARMACIST FOR IMMUNIZATION Active [facility] Lidocaine Hydrochloride 20 MG/ML Mucous Membrane Topical Solution Lidocaine Viscous 2 % mucosal solution Take 10 mL every 3 hours by oral route as needed. Active [facility] Oseltamivir 75 MG Oral Capsule oseltamivir 75 mg capsule Take 1 capsule every day by oral route as directed for 10 days. Active [facility] Azelastine hydrochloride 0.137 MG/ACTUAT Metered Dose Nasal Fisher azelastine 137 mcg (0.1 %) nasal spray aerosol Active [facility] Fluticasone propionate 0.05 MG/ACTUAT Metered Dose Nasal [place] fluticasone 50 mcg/actuation nasal spray,suspension Active [facility] methylprednisolone 4 mg tablets in a dose pack methylprednisolone 4 mg tablets in a dose pack Active [facility] montelukast 10 MG Oral Tablet montelukast 10 mg tablet Active [facility] Ranitidine 150 MG Oral Tablet ranitidine 150 mg tablet TAKE 1 TABLET BY MOUTH TWICE A DAY Active [facility] Allergies, Adverse Reactions, Alerts No Known Medication Allergies Immunizations Immunization Date Given Site Status Last Updated Comments Source influenza, unspecified formulation 06/09/2017 completed [facility] Results Order Name Results Value Reference Range Date Interpretation Comments Source RESULT negative 10/31/2017 [facility] SWAB LOCATION Left and Right tonsillar pillars 10/31/2017 [facility] Influenza A negative 06/03/2017 [facility] Influenza B negative 06/03/2017 [facility] RESULT negative 06/03/2017 [facility] SWAB LOCATION Left and Right tonsillar pillars 06/03/2017 [facility] Pathology Reports No Data Provided for This Section Diagnostic Reports Report Value Date Source Sinus wo contrast CT Clinical Indication: - allergic rhinitis \T\chronic headaches Comparison: None Technique: CT of the sinuses is performed without contrast on a multi-detector CT. Coronal and sagittal reconstructions were obtained. CT Radiation Dose DLP 528 mGy-cm FINDINGS: PARANASAL SINUSES: There is a 2.4 cm mucous retention cyst in the base of the right maxillary sinus 1.7 cm in the base of the left. There is minimal mucosal thickening along the medial wall and the bilateral ostium. The remainder of the paranasal sinuses show no significant because inflammatory changes with only minimal mucosal thickening in the right lateral sphenoid sinus and left frontal ethmoid recess. SOFT TISSUES: There is no soft tissue swelling seen. There is no significant lymphadenopathy noted. There are no fluid collections. NASAL CAVITY: The nasal septum is slightly deviated and there is mucosal prominence of the left middle turbinate. There is no nasal polyposis. ORBITS: The globes and extraocular muscles appear unremarkable. The orbital apex regions appear unremarkable. The orbital roof, floor, superior, inferior, medial and lateral macias are intact. FACIAL BONES: There are no facial bone fractures noted. The pterygoid plates are intact. The zygomatic arches are intact. The cribriform plate and catherine sarah regions are unremarkable. The maxilla is intact. The mandible is intact with intact mandibular condyles and coronoid processes. IMPRESSION: Mucous retention cyst in the base of the maxillary sinuses are present along with minor mucosal thickening in the right lateral sphenoid sinus and left frontal ethmoid recess. There is no nasal polyposis. There is slight nasal septal deviation. PRIETO: ASHLEY 08/27/2017 [facility] Consultation Notes No Data Provided for This Section Discharge Summaries No Data Provided for This Section History and Physicals No Data Provided for This Section Vital Signs Vital Sign Value Date Comments Source Diastolic (mm Hg) 60 07/21/2018 [facility] Height 64 07/21/2018 [facility] Systolic (mm Hg) 100 07/21/2018 [facility] Weight 125 07/21/2018 [facility] Diastolic (mm Hg) 72 10/31/2017 [facility] Height 64 10/31/2017 [facility] Systolic (mm Hg) 92 10/31/2017 [facility] Weight 123 10/31/2017 [facility] Diastolic (mm Hg) 66 06/03/2017 [facility] Height 64 06/03/2017 [facility] Systolic (mm Hg) 104 06/03/2017 [facility] Weight 132 06/03/2017 [facility] Encounters Location Location Details Encounter Type Encounter Number Reason For Visit Attending Provider ADM Date DC Date Status Source [place] - [facility] - [id number] Jason, INSULATION SUPERVISOR-C: [address] [place] [address], Ph. [id number] Jeimy Jason 06/03/2017 [facility] [id number] Joshua Pike 08/27/2017 08/28/2017 [facility] [place] - [facility] - [id number] [place]roy, [facility]-C: [address] [facility] [place] [address], Ph. [id number] Jeimy Jason 10/31/2017 [facility] [place] - [facility] - [id number] Manoj Mai, INSULATION SUPERVISOR-C: [address] [place] [address], Ph. [id number] Manoj Mai 07/21/2018 [facility] Procedures Procedure Code Date Perfomer Comments Source Tonsillectomy [facility] Assessment and Plan No Data Provided for This Section Plan of Care No Data Provided for This Section Social History Social History Date Source No data available for this section 08/28/2017 [facility] Smoking Status Never Smoker 06/03/2017 [facility] Family History No Data Provided for This Section Advance Directives No Data Provided for This Section Functional Status No Data Provided for This Section
--- OUTSIDE RECORDS SUMMARY | 2019-04-01 20:28 | XMS REPORT | Summary of Care ---
Author Author [facility] - Health Organization [facility] - Health Address Unknown Phone Unavailable Care Team Providers Care Behavioral Health Care Manager Name Role Phone Jeimy Nunez MD PCP Jesús Dickinson MD Unavailable Reason for Visit * Reason Comments Appointment tubes Assessment Encounter Details Care Team Description Date Type Department Mervat Wright MD [address] [place] [address] Appointment (tubes); Assessment 03/20/2019 Telephone [facility] [address] [place] [address] Allergies Comments Active Allergy Reactions Severity Noted Date Whole milk vitamin D Milk Other - See Medium 02/01/2019 comments Peanut Butter Flavor Anaphylaxis 04/18/2014 documented as of this encounter (statuses as of 03/22/2019) Medications End Date Status Medication Sig Dispensed [...] pain. Active fluticasone propionate 50 Use 1 [place] 16 g mcg/actuation nasal in each 9 sprayIndications: Chronic nostril 2 seasonal allergic (two) times rhinitis due to pollen, daily. Hypertrophy of both inferior nasal turbinates Active montelukast 10 mg Take 1 tablet 30 tablet tabletIndications: by mouth 9 Chronic seasonal allergic daily. rhinitis due to pollen Active ranitidine 150 mg Take 1 tablet 60 tablet tabletIndications: LPRD by mouth 2 9 (laryngopharyngeal reflux (two) times disease) daily. Active azelastine 137 mcg (0.1 Use 1 [place] 30 mL %) nasal in each 9 sprayIndications: Chronic [...] as of this encounter (statuses as of 03/22/2019) Active Problems Problem Noted Date Odynophagia 12/15/2018 Overview: Added automatically from request for surgery [id number] Heartburn 12/15/2018 Overview: Added automatically from request for surgery [id number] Post-nasal drip 12/15/2018 Overview: Added automatically from request for surgery [id number] Abdominal pain, generalized 12/15/2018 Overview: Added automatically from request for surgery [id number] Dysphagia, pharyngoesophageal phase 12/15/2018 Overview: Added automatically from request for surgery [id number] Other iron deficiency anemia 06/21/2017 Polyarthritis 04/26/2012 Overview: mild,symmetric documented as of this encounter (statuses as of 03/22/2019) Resolved Problems Problem Noted Date Resolved Date Group B Streptococcus carrier, antepartum 04/10/2015 11/05/2015 Antepartum anemia in second trimester 02/22/2015 11/05/2015 documented as of this encounter (statuses as of 03/22/2019) Immunizations Name Administration Dates Next Due Allergen [...] of this encounter Last Filed Vital Signs Not on filedocumented in this encounter Plan of Treatment Care Team Description Date Type Specialty Jesús Dickinson MD [address] [place] [address] [phone] 04/25/2019 Office Visit Obstetrics & Gynecology Mervat Wright MD [address] [place] [address] [phone] 05/04/2019 Hospital Surgery Encounter Mervat Wright MD [address] [place] [address] [phone] ETHMOIDECTOMY 05/04/2019 Surgery Surgery Mervat Wright MD [address] [place], [place] [address] 05/10/2019 Office Visit Otolaryngology Health Maintenance Due Date Last Done Comments DTaP,Tdap,and Td Vaccines 1999 (1 - Tdap) INFLUENZA VACCINE 04/09/2019 06/09/2017, 10/10/2014, 04/26/2012 PAP SMEAR 11/21/2019 11/20/2016, 10/10/2014 PNEUMOCOCCAL 0-64 YEARS Aged Out No longer eligible based COMBINED SERIES on patient's age to complete this topic documented as of this encounter Results Not on filedocumented in this encounter Insurance Type Payer Benefit Subscriber ID Effective Phone Address Plan / Dates Group HMO/PPO/POS [facility] [id number] 2015-P HEALTHCARE resent PPO documented as of this encounter
--- OUTSIDE RECORDS SUMMARY | 2019-04-01 20:28 | XMS REPORT | Summary of Care ---
Author Author [facility] - Health Organization [facility] - Health Address Unknown Phone Unavailable Care Team Providers Care Coupon Redemption Clerk Name Role Phone Jeimy Nunez MD PCP Jesús Dickinson MD Unavailable Reason for Visit * Reason Comments Assessment Encounter Details Care Team Description Date Type Department Jesús Dickinson MD [address] [place] [address] Assessment 03/15/2019 Telephone [facility], [address], [address] [place] [address] Allergies Comments Active Allergy Reactions Severity Noted Date Whole milk vitamin D Milk Other - See Medium 02/01/2019 comments Peanut Butter Flavor Anaphylaxis 04/18/2014 documented as of this encounter (statuses as of 03/15/2019) Medications End Date Status Medication Sig Dispensed [...] pain. Active fluticasone propionate 50 Use 1 [place] 16 g 11 mcg/actuation nasal in each [...] Active azelastine 137 mcg (0.1 Use 1 [place] 30 mL %) nasal in each 9 [...] as of this encounter (statuses as of 03/15/2019) Active Problems Problem Noted Date Odynophagia 12/15/2018 Overview: Added automatically from request for surgery [id number] Heartburn 12/15/2018 Overview: Added automatically from request for surgery [id number] Post-nasal drip 12/15/2018 Overview: Added automatically from request for surgery [id number] Abdominal pain, generalized 12/15/2018 Overview: Added automatically from request for surgery [id number] Dysphagia, pharyngoesophageal phase 12/15/2018 Overview: Added automatically from request for surgery [id number] Other iron deficiency anemia 06/21/2017 Polyarthritis 04/26/2012 Overview: mild,symmetric documented as of this encounter (statuses as of 03/15/2019) Resolved Problems Problem Noted Date Resolved Date Group B Streptococcus carrier, antepartum 04/10/2015 11/05/2015 Antepartum anemia in second trimester 02/22/2015 11/05/2015 documented as of this encounter (statuses as of 03/15/2019) Immunizations Name Administration Dates Next Due Allergen [...] Jesús Dickinson MD [address] [place] [address] [phone] 04/25/2019 Office Visit Obstetrics & Gynecology Mervat Wright MD [address] [place] [address] [phone] 05/04/2019 Hospital Surgery Encounter Mervat Wright MD [address] [place] [address] [phone] ETHMOIDECTOMY 05/04/2019 Surgery Surgery Mervat Wright MD [address] [place] [address] [phone] 05/10/2019 Office Visit Otolaryngology Health Maintenance Due [...] Phone Address Plan / Dates Group HMO/PPO/POS [facility] [id number] 2015-P HEALTHCARE resent PPO documented as of this encounter
--- OUTSIDE RECORDS SUMMARY | 2019-04-01 20:28 | XMS REPORT | Summary of Care ---
Author Author [facility] - Health Organization [facility] - Health Address Unknown Phone Unavailable Care Team Providers Care Hip Hop Dance Instructor Name Role Phone Jeimy Nunez MD PCP Jesús Dickinson MD Unavailable Reason for Visit * Reason Comments Assessment Encounter Details Care Team Description Date Type Department Mervat Wright MD [address] [place] [address] Assessment 03/09/2019 Telephone [facility] [address] [place] [address] Allergies Comments Active Allergy Reactions Severity Noted Date Whole milk vitamin D Milk Other - See Medium 02/01/2019 comments Peanut Butter Flavor Anaphylaxis 04/18/2014 documented as of this encounter (statuses as of 03/09/2019) Medications End Date Status Medication Sig Dispensed [...] pain. Active fluticasone propionate 50 Use 1 [place] 16 g 11 201 mcg/actuation nasal in each 9 sprayIndications: Chronic [...] Active azelastine 137 mcg (0.1 Use 1 [place] 30 mL %) nasal in each 9 sprayIndications: Chronic nostril 2 seasonal allergic (two) times rhinitis due to pollen, daily. Use in Hypertrophy of both each nostril inferior nasal turbinates as directed Active methylPREDNISolone Take by 1 Each 0 (MEDROL, BLAISE,) 4 mg mouth 9 tabletsIndications: SEE-INSTRUCTI Chronic maxillary ONS. follow sinusitis, Chronic package ethmoidal sinusitis, directions Chronic frontal sinusitis 03/09/2019 Discontinued methylPREDNISolone Take by 1 Each 0 (MEDROL, BLAISE,) 4 mg mouth 9 tabletsIndications: SEE-INSTRUCTI Chronic maxillary ONS. follow sinusitis, Chronic package ethmoidal sinusitis, directions Chronic frontal sinusitis documented as of this encounter (statuses as of 03/09/2019) Active Problems Problem Noted Date Odynophagia 12/15/2018 Overview: Added automatically from request for surgery [id number] Heartburn 12/15/2018 Overview: Added automatically from request for surgery [id number] Post-nasal drip 12/15/2018 Overview: Added automatically from request for surgery [id number] Abdominal pain, generalized 12/15/2018 Overview: Added automatically from request for surgery [id number] Dysphagia, pharyngoesophageal phase 12/15/2018 Overview: Added automatically from request for surgery [id number] Other iron deficiency anemia 06/21/2017 Polyarthritis 04/26/2012 Overview: mild,symmetric documented as of this encounter (statuses as of 03/09/2019) Resolved Problems Problem Noted Date Resolved Date Group B Streptococcus carrier, antepartum 04/10/2015 11/05/2015 Antepartum anemia in second trimester 02/22/2015 11/05/2015 documented as of this encounter (statuses as of 03/09/2019) Immunizations Name Administration Dates Next Due Allergen [...] Date Type Specialty Mervat Wright MD [address] [place] [address] [phone] 05/04/2019 Hospital Surgery Encounter Mervat Wright MD [address] [place], [place] [address] [phone] ETHMOIDECTOMY 05/04/2019 Surgery Surgery Mervat Wright MD [address] [place], [place] [address] [phone] 05/10/2019 Office Visit Otolaryngology Health Maintenance Due [...] encounter Visit Diagnoses Diagnosis Chronic maxillary sinusitis Chronic ethmoidal sinusitis Chronic frontal sinusitis documented in this encounter Insurance Type Payer Benefit Subscriber ID Effective Phone Address Plan / Dates Group HMO/PPO/POS [facility] [id number] 2015-P HEALTHCARE resent PPO documented as of this encounter
--- OUTSIDE RECORDS SUMMARY | 2019-04-01 20:28 | XMS REPORT | Summary of Care ---
Author Author [facility] - Health Organization [facility] - Health Address Unknown Phone Unavailable Care Team Providers Care Cotton Inspector Name Role Phone Jeimy Nunez MD PCP Jesús Dickinson MD Unavailable Reason for Visit * Reason Comments Assessment Encounter Details Care Team Description Date Type Department Mervat Wright MD [address] [place] [address] Assessment 03/15/2019 Telephone [facility] [address] [place] [address] Allergies Comments Active Allergy Reactions Severity Noted Date Whole milk vitamin D Milk Other - See Medium 02/01/2019 comments Peanut Butter Flavor Anaphylaxis 04/18/2014 documented as of this encounter (statuses as of 03/16/2019) Medications End Date Status Medication Sig Dispensed [...] pain. Active fluticasone propionate 50 Use 1 [place] 16 g 11 201 mcg/actuation nasal in [...] Active azelastine 137 mcg (0.1 Use 1 [place] 30 mL %) nasal in each 9 [...] as of this encounter (statuses as of 03/16/2019) Active Problems Problem Noted Date Odynophagia 12/15/2018 Overview: Added automatically from request for surgery [id number] Heartburn 12/15/2018 Overview: Added automatically from request for surgery [id number] Post-nasal drip 12/15/2018 Overview: Added automatically from request for surgery [id number] Abdominal pain, generalized 12/15/2018 Overview: Added automatically from request for surgery [id number] Dysphagia, pharyngoesophageal phase 12/15/2018 Overview: Added automatically from request for surgery [id number] Other iron deficiency anemia 06/21/2017 Polyarthritis 04/26/2012 Overview: mild,symmetric documented as of this encounter (statuses as of 03/16/2019) Resolved Problems Problem Noted Date Resolved Date Group B Streptococcus carrier, antepartum 04/10/2015 11/05/2015 Antepartum anemia in second trimester 02/22/2015 11/05/2015 documented as of this encounter (statuses as of 03/16/2019) Immunizations Name Administration Dates Next Due Allergen [...] Jesús Dickinson MD [address] [place] [address] [phone] 04/25/2019 Office Visit Obstetrics & Gynecology Mervat Wright MD [address] [place] [address] [phone] 05/04/2019 Hospital Surgery Encounter Mervat Wright MD [address] [place] [address] [phone] ETHMOIDECTOMY 05/04/2019 Surgery Surgery Mervat Wright MD [address] [place] [address] [phone] 05/10/2019 Office Visit Otolaryngology Health Maintenance Due [...] Phone Address Plan / Dates Group HMO/PPO/POS [facility] [id number] 2015-P HEALTHCARE resent PPO documented as of this encounter
--- OUTSIDE RECORDS SUMMARY | 2019-04-01 20:28 | XMS REPORT | Summary of Care ---
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 Complains of nasal congestion and thick mucus with coughing Encounter Details Care Team Description Date Type Department Mervat Wright MD [address] [place], [place] [address] Chronic maxillary sinusitis (Primary Dx); Nasal polyposis; Chronic seasonal allergic rhinitis due to pollen; ETD (Eustachian tube dysfunction), bilateral; Hypertrophy of both inferior nasal turbinates; Nasal obstruction; Nasal septal deviation; Hyposmia; LPRD (laryngopharyngeal reflux disease); Peanut allergy; Chronic ethmoidal sinusitis; Chronic frontal sinusitis 03/08/2019 [facility] [address] [place] [phone] Allergies Comments Active Allergy Reactions Severity Noted Date Whole milk vitamin D Milk Other - See Medium 02/01/2019 comments Peanut Butter Flavor Anaphylaxis 04/18/2014 documented as of this encounter (statuses as of 03/10/2019) Medications End Date Status Medication Sig Dispensed [...] pain. Active fluticasone propionate 50 Use 1 Staples 16 g 11 mcg/actuation nasal in each [...] Active azelastine 137 mcg (0.1 Use 1 Staples 30 mL 11 %) nasal in each 9 sprayIndications: Chronic nostril 2 seasonal allergic (two) times rhinitis due to pollen, daily. Use in Hypertrophy of both each nostril inferior nasal turbinates as directed 03/09/2019 Discontinued methylPREDNISolone Take by 1 Each 0 (MEDROL, BLAISE,) 4 mg mouth 9 tabletsIndications: SEE-INSTRUCTI Chronic maxillary ONS. follow sinusitis, Chronic package ethmoidal sinusitis, directions Chronic frontal sinusitis documented as of this encounter (statuses as of 03/10/2019) Active Problems Problem Noted Date Odynophagia 12/15/2018 Overview: Added automatically from request for surgery [id number] Heartburn 12/15/2018 Overview: Added automatically from request for surgery [id number] Post-nasal drip 12/15/2018 Overview: Added automatically from request for surgery [id number] Abdominal pain, generalized 12/15/2018 Overview: Added automatically from request for surgery [id number] Dysphagia, pharyngoesophageal phase 12/15/2018 Overview: Added automatically from request for surgery [id number] Other iron deficiency anemia 06/21/2017 Polyarthritis 04/26/2012 Overview: mild,symmetric documented as of this encounter (statuses as of 03/10/2019) Resolved Problems Problem Noted Date Resolved Date Group B Streptococcus carrier, antepartum 04/10/2015 11/05/2015 Antepartum anemia in second trimester 02/22/2015 11/05/2015 documented as of this encounter (statuses as of 03/10/2019) Immunizations Name Administration Dates Next Due Allergen [...] between 1pm-4:30pm with time of surgery) [facility] [address] [place] [address] Day Surgery If you have any questions, or if you need to cancel/reschedule the surgery or post-op appointments, please contact us at [phone]. Thank you. documented in this encounter Progress Notes * Jeyson Gonzales MD - 03/08/2019 9:15 AM CDT 03/08/2019 09:53 Arelis Rosenbaum Chief Complaint: Follow up CT sinus, congestion, sinus and allergy problems ENT Follow-up This is a 38 year old with hx of food allergies, LPRD, severe seasonal and peren nial AR/ith contributing to CRS with polyps, hyposmia, ETD and nasal obstruction . Allergy test very positive (results documented below) was on SCIT but stopped due to it causing her "bad reflux" and worsening of congestion. Today she reports no improvement in the [...] gets worse, she takes sudafed prn. True ps epipen for food allergies, no recent severe [...] mcg (0.1 %) nasal spray Use 1 Staples in each nostril 2 (two) t imes daily. Use in each nostril as directed 30 mL 11 fluticasone propionate 50 mcg/actuation nasal spray Use 1 Staples in each nost ril 2 (two) times [...] inferior turbinate hypertroph y Bilateral narrow OMCs with bilateral Howard cells and Bilateral maxillary sinus congestion with mucus retention cysts Bilateral anterior ethmoid mucosal congestion and frontal recess congestion. Bi lateral hypoplastic frontal sinuses Bilateral posterior ethmoid Mucosal congestion Bilateral sphenoid mucosal congestion with Onodi Cells bilaterally Overall hypoplastic sinuses Skull base symmetrical Keros Classification II AEAs [...] Allergy test very positive. Discussed CT sinus. Pt has been on allergy medication, antibiotics, steroids, still has nasal obstruction/facial pr essure/hyposmia. Pt did not tolerate allergy shots. Patient aware of the sympto ms and would like to proceed with sinus surgery. Discussed need for endoscopic s inus surgery, septoplasty and ITR. Patient will also get BMT for ETD/retractions . Patient aware of risks and benefits and wishes to proceed. We will also give h er a medrol dose pack. ICD-10-CM ICD-9-CM 1. [...] allergy Z91.010 V15.01 Plan: - Medrol Dosepak to help with current allergy flare up, continued congestion - Continue Flonase and astelin 1 spray [...] ethmoidectomy, bilaterall y sphenoidotomy or balloon dilation. FESS with: 81430-13: Bilateral Total ethmoidectomy-possible 37553-91: Bilateral Total ethmoidectomy and sphenoid sinusotomy--possible 64299-48: Bilateral Maxillary antrostomy with tissue removal 56220-15: Bilateral Sphenoid balloon sinuplasty--possible 39206 Septoplasty-possible 68130-29: Bilateral Inferior turbinate submucous resection 31506-01: bilateral tympanostomy tubes 62270: with stereotactic navigation. Navigation required due to instrumentati on of posterior ethmoid/sphenoid sinuses and Howard cells Risks, benefits, alternatives of endoscopic sinus surgery were discussed with th e patient including bleeding, infection, scarring/adhesions in then nose, damage to septum, septal perforation, bruising around the eyes or cheeks, numbness of the cheek/nose, change or loss of sense of smell, air under the skin of the face /eyelid (subcutaneous emphysema); need for second surgery if excessive bleeding due to polyps; damage to the nasolacrimal duct, excessive tearing; damage to th e eye including blurred vision, poor movement of the eye, visual loss; cerebrosp inal fluid leak, meningitis, damage to the brain; anasthesia risk, allergy react ion, blood clots, . We discussed that given repetitive sinus infections, patient's condition is like ly to improve with surgery and also discussed that continued allergy control alexus l be important to sustain results of surgery. Discussed postoperative diet/care/activity/sinus rinses. No lifting weight > 10-15 lbs for 2 weeks. - Risks and benefits discussed with patient regarding sinus surgery. Patient is aware and wishes to proceed - Consent obtained today. RTC 6 days after sinus surgery Jeyson Gonzales MD Otolaryngology-Head & Neck Surgery PGY-1 ENT visit I personally examined the patient on 02/3119 and agree with the resident david morton's note as revised by me with the following addition(s): I personally performe d the history of presenting illness and reviewed the patient's past medical/surg ical history, medication, allergy, review of symptoms, family and social histori es. I also personally performed the entire physical examination and formulat ed the assessment/diagnoses and plan/prescriptions. I reviewed and edited the relevant diagnoses: ICD-10-CM ICD-9-CM 1. Chronic maxillary sinusitis J32.0 473.0 2. Nasal polyposis J33.9 471.9 3. Chronic seasonal allergic rhinitis due to pollen J30.1 477.0 4. ETD (Eustachian tube dysfunction), bilateral H69.83 381.81 5. Hypertrophy of both inferior nasal turbinates J34.3 478.0 6. Nasal obstruction J34.89 478.19 7. Nasal septal deviation J34.2 470 8. Hyposmia R43.8 781.1 9. LPRD (laryngopharyngeal reflux disease) K21.9 478.79 10. Peanut allergy Z91.010 V15.01 11. Chronic ethmoidal sinusitis J32.2 473.2 12. Chronic frontal sinusitis J32.1 473.1 I actively participated in the decision-making process. Please see the completed clinic note for additional details. documented in this encounter Plan of Treatment Care Team Description Date Type Specialty Mervat Wright MD [address] [place] [address] [phone] 05/04/2019 Hospital Surgery Encounter Mervat Wright MD [address] [place] [address] [phone] ETHMOIDECTOMY 05/04/2019 Surgery Surgery Mervat Wright MD [address] [place] [address] [phone] 05/10/2019 Office Visit Otolaryngology Health Maintenance Due [...] Phone Address Plan / Dates Group HMO[facility]PPO/[facility] [id number] [facility] documented as of this encounter
--- OUTSIDE RECORDS SUMMARY | 2019-04-01 20:28 | XMS REPORT | Summary of Care ---
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 Active fluticasone propionate 50 Use 1 [place] 16 g mcg/actuation nasal in each 9 [...] Active azelastine 137 mcg (0.1 Use 1 [place] 30 mL %) nasal in each 9 [...] Overview: Added automatically from request for surgery [id number] Heartburn 12/15/2018 Overview: Added automatically from request for surgery [id number] Post-nasal drip 12/15/2018 Overview: Added automatically from request for surgery [id number] Abdominal pain, generalized 12/15/2018 Overview: Added automatically from request for surgery [id number] Dysphagia, pharyngoesophageal phase 12/15/2018 Overview: Added automatically from request for surgery [id number] Other iron deficiency anemia 06/21/2017 Polyarthritis 04/26/2012 [...] Jesús Dickinson MD [address] [place] [address] [phone] 04/25/2019 Office Visit Obstetrics & Gynecology Mervat Wright MD [address] [place] [address] [phone] 05/04/2019 Hospital Surgery Encounter Mervat Wright MD [address] [place] [address] [phone] ETHMOIDECTOMY 05/04/2019 Surgery Surgery Mervat Wright MD [address] [place], [place] [phone] 05/10/2019 Office Visit Otolaryngology Health Maintenance Due [...] Phone Address Plan / Dates Group HMO/PPO/POS [facility] [id number] 2015-P [employer] documented as of this encounter
[2019-04-01 20:49] LABS: BASOPHILS % 0.3 % (0.0-1.0); EOSINOPHILS # (AUTO) 0.1 (0.0-0.4); EOSINOPHILS % 0.9 % (0.0-6.0); HEMATOCRIT 38.4 % (34.2-44.1); HEMOGLOBIN 12.8 g/dL (12.0-16.0); LYMPHOCYTES # (AUTO) 2.1 (1.0-3.2); LYMPHOCYTES % 20.2 % (18.0-39.1); MEAN CORPUSCULAR HEMOGLOBIN 31.4 pg (28-32); MEAN CORPUSCULAR HGB CONC 33.3 g/dL (31-35); MEAN CORPUSCULAR VOLUME 94.1 fL (81-99); MONOCYTES # (AUTO) 0.5 (0.2-0.8); MONOCYTES % 4.5 % (4.4-11.3); NEUTROPHILS # (AUTO) 7.8 (2.1-6.9); NEUTROPHILS % 73.8 % (38.7-80.0); PLATELET COUNT 220 x10e3/uL (140-360); RED BLOOD COUNT 4.08 x10e6/uL (3.6-5.1); RED CELL DISTRIBUTION WIDTH 12.4 % (11.7-14.4)
[2019-04-01 20:50] LABS: BILIRUBIN,URINE NEGATIVE (NEGATIVE); CLARITY,URINE SL CLOUDY (CLEAR); COLOR,URINE YELLOW (YELLOW); KETONES,URINE 1+ (NEGATIVE); LEUKOCYTE ESTERASE ,URINE NEGATIVE (NEGATIVE); NITRITE,URINE NEGATIVE (NEGATIVE); PROTEIN,URINE DIPSTICK TRACE (NEGATIVE); URINE UROBILINOGEN 0.2 mg/dL (0.2 - 1)
[2019-04-01 20:56] LABS: PREGNANCY TEST, URINE NEGATIVE (NEGATIVE)
[2019-04-01 21:05] LABS: WBC,URINE (MAN) 0-5 /HPF (0-5)
[2019-04-01] MEDS ORDERED: KETOROLAC TROMETHAMINE 30 MG/ML VIAL IV STA (21:05)
[2019-04-01 21:06] LABS: BACTERIA,URINE FEW /HPF; EPITHELIAL CELLS,URINE MODERATE /LPF
[2019-04-01 21:08] LABS: ALANINE AMINOTRANSFERASE 8 IU/L (0-55); ALBUMIN 4.3 g/dL (3.5-5.0); ALBUMIN/GLOBULIN RATIO 1.3 (0.8-2.0); ALKALINE PHOSPHATASE 64 IU/L (40-150); ANION GAP 17.3 mmol/L (8-16); BLOOD UREA NITROGEN 9 mg/dL (7-26); BUN/CREATININE RATIO 11 (6-25); CALCIUM 9.8 mg/dL (8.4-10.2); CARBON DIOXIDE 24 mmol/L (22-29); CHLORIDE 100 mmol/L (98-107); CREATININE, SERUM 0.85 mg/dL (0.57-1.11); EST GLOMERULAR FILTRATION RATE > 60 ML/MIN (60-); GLUCOSE 146 mg/dL (74-118); POTASSIUM 3.3 mmol/L (3.5-5.1); SODIUM 138 mmol/L (136-145)
[2019-04-01 21:09] LABS: AMYLASE 53 U/L (25-125); LIPASE 24 U/L (8-78)
[2019-04-01] MEDS ORDERED: KETOROLAC TROMETHAMINE 30 MG/ML VIAL ONE (21:20)
[2019-04-01] MEDS ORDERED: SODIUM CHLORIDE 0.9% 50ML 50 ML ONE (21:23)
[2019-04-01] MEDS ORDERED: IOPAMIDOL 370 MG/ML 200 ML INFUS..BTL INJ ONE (21:23)
--- NOTE | 2019-04-01 22:09 | Diagnostic Imaging Report ---
EXAM: CT Abdomen and Pelvis WITH contrast INDICATION: Intermittent lower abdominal pain COMPARISON: None. TECHNIQUE: Abdomen and pelvis were scanned utilizing a multidetector helical scanner from the lung base to the pubic symphysis after administration of IV contrast. Coronal and sagittal reformations were obtained. Routine protocol was performed. Scan was performed when during portal venous phase. IV CONTRAST: 100 mL of Isovue 370 ORAL CONTRAST: None COMPLICATIONS: None RADIATION DOSE: Total DLP: 185 mGy*cm Estimated effective dose: (DLP x 0.015 x size factor) mSv CTDIvol has been reviewed. It is below the limits set by the Radiation Protocol Committee (RPC). Dose modulation, iterative reconstruction, and/or weight based adjustment of the mA/kV was utilized to reduce the radiation dose to as low as reasonably achievable. FINDINGS: LINES and TUBES: None. LOWER THORAX: Unremarkable HEPATOBILIARY: No focal hepatic lesions. No biliary ductal dilation. GALLBLADDER: No radio-opaque stones or sludge. No wall thickening. SPLEEN: No splenomegaly. PANCREAS: No focal masses or ductal dilatation. ADRENALS: No adrenal nodules KIDNEYS/URETERS: Kidneys enhance symmetrically. No hydronephrosis. No cystic or solid mass lesions. No stones. GI TRACT: No abnormal distention, wall thickening, or evidence of bowel obstruction. Appendix is normal. PELVIC ORGANS/BLADDER: Slightly prominent bilateral adnexal vasculature. Small follicle in the right ovary (coronal series 301 image 38). The urinary bladder is unremarkable. Retroflexed retroverted uterus. LYMPH NODES: No lymphadenopathy. VESSELS: Unremarkable. PERITONEUM / RETROPERITONEUM: Trace free fluid in the pelvis. No free air. BONES: Unremarkable. SOFT TISSUES: Unremarkable. IMPRESSION: Suggestion of periovulatory findings in the pelvis. Consider pelvic ultrasound for further evaluation. Signed by: Shayne Salas DO on 04/01/2019 10:06 PM
--- NOTE | 2019-04-01 23:55 | Diagnostic Imaging Report ---
EXAM: Transabdominal Pelvic Ultrasound INDICATION: Intermittent lower abdominal pain COMPARISON: Abdominal CT 04/01/2019 TECHNIQUE: Grayscale transverse and sagittal transabdominal images were obtained of the pelvis. CLINICAL HISTORY: 38 year old ; last menstrual period: 01/27/2019. FINDINGS: Uterus Orientation: Normal Size: 10.4 x 5.5 x 6.4 cm, Normal Mass: None Cervix: Normal Endometrium: Thickness: 0.7 cm, Normal. Appearance: Homogeneous echotexture without focal thickening. Right ovary: Size: 1.9 x 1.6 x 2.1 cm Mass/Cyst: None Trace fluid around the right ovary. Left ovary: Size: 3.2 x 1.9 x 2.5 cm Mass/Cyst: None Adnexa: Normal Trace fluid in the pelvis. IMPRESSION: Trace fluid in the pelvis and around the right ovary, consistent with periovulatory findings. Signed by: Shayne Salas DO on 04/01/2019 11:52 PM
[2019-04-02] VITALS: BP 103/69
== END 2019-04-02 00:08 | disposition home or self-care (01) ==
LOC: ER 20:24
DX: R10.31 Right lower quadrant pain (principal); R10.32 Left lower quadrant pain; J45.909 Unspecified asthma, uncomplicated
CPT/HCPCS: 36415; 74177; 76856; 80053; 81001; 81025; 82150; 83690; 85025; 96374; 99284; J1885; Q9967